=== PATIENT | male | born 1985 | race Caucasian/White ===

== ENCOUNTER 2018-06-14 06:58 | Day surgery (SDC) | payer BC ==
[~2018-06-14] VITALS: Ht 180.3 cm; Wt 97.1 kg
[2018-06-14] MEDS ORDERED: LR 1,000 ML IV.SOLN IV ONE (10:06)
[2018-06-14] MEDS ORDERED: fentaNYL CITRATE/PF 100 MCG/2 ML AMP IVP ONE ×2 (10:06→14:15)
[2018-06-14] MEDS ORDERED: ONDANSETRON HCL 4 MG/2 ML VIAL IVP ONE (10:06)
[2018-06-14] MEDS ORDERED: ROCURONIUM BROMIDE 10 MG/ML (ZEMURON) IV ONE (10:06)
[2018-06-14] MEDS ORDERED: NS 1000 ML IV.SOLN IV ONE (10:06)
[2018-06-14] MEDS ORDERED: MIDAZOLAM HCL 5 MG/5 ML VIAL IVP ONE (10:06)
[2018-06-14] MEDS ORDERED: WATER FOR IRRIGATION,STERILE 1,000 ML IRRIG.SOLN IR ONE ×2 (10:06)
[2018-06-14] MEDS ORDERED: BACITRACIN ZINC 15 GM TOPICAL OINTMENT TP ONE (10:06)
[2018-06-14] MEDS ORDERED: SEVOFLURANE 15 MIN GAS INH ONE (10:06)
[2018-06-14] MEDS ORDERED: PROPOFOL 200MG/ 20ML VIAL (DIPRIVAN) IV ONE (10:06)
[2018-06-14] MEDS ORDERED: MUPIROCIN 2% TOPICAL OINTMENT 22 GM TP ONE (10:06)
[2018-06-14] MEDS ORDERED: LIDOCAINE/EPI 1% 1:100000 20 ML VIAL INJ ONE (10:06)
[2018-06-14] MEDS ORDERED: ONDANSETRON HCL 4 MG/2 ML VIAL IVP PRN (11:15)
[2018-06-14] MEDS ORDERED: fentaNYL CITRATE/PF 100 MCG/2 ML AMP IVP PRN ×2 (11:15)
[2018-06-14] MEDS ORDERED: fentaNYL CITRATE/PF 100 MCG/2 ML AMP ONE ×2 (13:14→14:24)
[2018-06-14] MEDS ORDERED: ONDANSETRON HCL 4 MG/2 ML VIAL ONE (15:10)
[2018-06-14 17:13] VITALS: BP_SYST 139
== END 2018-06-14 16:30 | disposition home or self-care (01) ==
LOC: SDS 06:58 → SMU 06:58 → SDS 16:30
PROVIDERS: ATTEND Otolaryngology
DX: J34.2 Deviated nasal septum (principal); J32.9 Chronic sinusitis, unspecified; J34.89 Other specified disorders of nose and nasal sinuses; J33.8 Other polyp of sinus; J45.909 Unspecified asthma, uncomplicated; Z98.890 Other specified postprocedural states; Z79.899 Other long term (current) drug therapy; Z68.30 Body mass index [BMI] 30.0-30.9, adult; E66.01 Morbid (severe) obesity due to excess calories
CPT/HCPCS: 30140; 30520; 31267; 31298; 88305; 88311; C1726; J2405; J3010; J7120; J2250; J2704; J7030

== ENCOUNTER 2022-05-08 07:30 | Emergency (ER) | payer BC ==
[~2022-05-08] VITALS: Ht 180.3 cm; Wt 96.6 kg
[2022-05-08 07:45] VITALS: BP_SYST 142
[2022-05-08] MEDS ORDERED: MORPHINE 4 MG INJ. 4 MG/ML VIAL IM ONE (08:45)
[2022-05-08] MEDS ORDERED: HYDR-3917 PO (08:47)
[2022-05-08 09:25] VITALS: BP_SYST 142
== END 2022-05-08 09:26 | disposition home or self-care (01) ==
LOC: SED 07:30
DX: M54.50 Low back pain, unspecified (principal); Z79.899 Other long term (current) drug therapy
CPT/HCPCS: 99283; 96372; J2270